=== PATIENT | female | born 1950 | race Caucasian/White ===

== ENCOUNTER → 2023-11-10 12:08 | Outpatient (REF) | payer OTHER, SELFPAY | LOC: HWRAD 12:08 | PROVIDERS: ATTENDING PHYSICIAN Student in an Organized Health Care Education/Training Program; FAMILY PHYSICIAN Family Medicine | DX: M54.41 Lumbago with sciatica, right side (principal) | CPT/HCPCS: 72110 ==

== ENCOUNTER 2023-12-07 16:10 | Emergency (ER) | payer OTHER, SELFPAY ==
[2023-12-07 16:23] VITALS: BP 111/69
--- NOTE | 2023-12-07 19:22 | ED.GENMED ---
History of Present Illness
General
Chief Complaint: Back Pain
Source: patient
Exam Limitations: none
Time Seen by Provider: 12/07/23 19:07
Nursing documentation reviewed up to this point in time: agreed with
History of Present Illness
History of Present Illness:
73-year-old female with no reported chronic medical issues presents to the emergency room for evaluation of constipation. Patient reports that she has not had a bowel movement in 11 days. She says that since early November she has been dealing with
low back pain�she says she woke up November 20 with back pain, saw her primary doctor and did some physical therapy and was feeling much better until about November 26 when she reinjured it while helping her elderly father. She says that pain was much
worse after this and she was having some numbness/paresthesias down her right lower extremity. She was started on gabapentin for pain control and she says generally low back pain has been improving. She is scheduled to see an orthopedist in 2
days. Meanwhile she has been struggling with significant constipation which prompted her to come to the emergency room.she was concerned that she could potentially have an obstruction. She says that she has taken stool softeners and MiraLAX
without improvement. She says she has tried enemas but has not had success. She says that she does not even feel the urge to defecate. Otherwise she feels generally well�she says she occasionally will get some lower abdominal pressure particular
when she eats but denies significant abdominal pain. She has not had any nausea or vomiting. She denies any urinary issues specifically denies incontinence. She denies any weakness in the lower extremities although she has had any
numbness/paresthesias right lower extremity as above. She denies any numbness in any groin or perineum/saddle anesthesia. She denies any fevers or chills. Denies other complaints.
Review of Systems
Review of Systems
All Other Systems: ROS reviewed and negative except as documented in HPI and ROS
Constitutional: Denies fever or chills
Respiratory: Denies trouble breathing
Cardiac: Denies chest pain
ABD/GI: Reports constipated; Denies abdominal pain, nausea or vomiting
: Denies dysuria, flank pain or incontinence
Musculoskeletal: Reports back pain; Denies neck pain
Neurological: Denies dizzy or headache
Phy Exam
Physical Exam
Physical Exam:
General: Awake, alert, oriented x3; no acute distress
Head: Normocephalic, atraumatic
Eyes: Conjunctiva normal
Throat: Airway intact, handling secretions
Neck: Trachea midline, supple without meningismus
Lungs: Clear to auscultation bilaterally, no wheezing, rales, rhonchi
Heart: Regular rate and rhythm, no murmurs, gallops, or rubs
Abd: Soft, non distended, minimally tender left lower quadrant
Rectal: No stool in the rectal vault or fecal impaction appreciated, good rectal tone, intact perineal sensation
Back: No midline tenderness in the thoracic or lumbar spine, no spinal step-offs, no reproducible paraspinal tenderness; negative straight leg raise test
Neuro: Cranial nerves grossly intact, speech fluid; motor and sensory function is intact and symmetric proximally and distally in the lower extremities, ambulatory in ED
Skin: no rash
Extremities: No edema in extremities, equal pulses in all extremities
Scores
Heart Failure Risk
Heart Failure Risk Score: Not Applicable
Heart Score for Chest Pain Patients
STEMI patient?: Not applicable
Withdrawal Assessment of Alcohol
Withdrawal Assessment Completed?: Not applicable
Course
Orders/Labs/Results
Orders:
Orders
12/07/23 19:22
CT Abd/pelvis W Iv Cont Urgent
Comment: patient also dealing with low back pain x3 weeks
Reason For Exam: lower abd pain, back pain, constipation (x11 days)
12/07/23 19:52
Complete Blood Count/With Diff Urgent
Comprehensive Metabolic Panel Urgent
Magnesium Urgent
12/07/23 21:31
Urinalysis Reflex To Culture Urgent
Date Specimen was Collected: 12/07/23
Time Specimen was Collected: 21:24
Abnormal Lab Results
12/07/23
19:52
WBC 3.6 L 10^3/uL
(4.8-10.8)
RBC 3.99 L 10^6/uL
(4.20-5.40)
Hgb 11.8 L g/dL
(12.0-16.0)
Hct 35.5 L %
(37.0-47.0)
RDW 14.8 H %
(11.5-14.5)
Absolute Lymphs (auto) 1.1 L 10^3/uL
(1.2-3.4)
Monocytes % 16.1 H %
(1.7-9.3)
AST 41 H U/L
(14-36)
Total Protein 6.2 L g/dl
(6.3-8.2)
12/07/23 19:52
12/07/23 19:52
Vital Signs
Initial and Last Documented VS:
Initial Vital Signs
Temp Pulse Resp BP Pulse Ox
36.7 C 80 16 111/69 97
12/07/23 16:23 12/07/23 16:23 12/07/23 16:23 12/07/23 16:23 12/07/23 16:23
Last Documented Vital Signs
Temp Pulse Resp BP Pulse Ox
36.7 C 72 16 139/91 98
12/07/23 16:23 12/07/23 22:08 12/07/23 22:08 12/07/23 22:08 12/07/23 22:08
MDM/Problems Addressed
Differential Diagnosis Includes:
Constipation, bowel obstruction, ileus
MDM/Problems Addressed:
73-year-old female presents to the emergency room for evaluation of constipation�reports no bowel movement x 11 days despite attempts with stool softener, MiraLAX, enema. Symptoms occurring in the setting of recent low back issues�she says these
issues are generally improving, only has mild paresthesias/numbness right lower extremity, no red flag symptoms or exam findings. Plan to check basic labs including a CBC and CMP. Will send for a CT abdomen pelvis. Will reassess after the above.
Labs reviewed: CBC shows marginal leukopenia, marginal anemia, no clinically significant abnormalities. CMP no clinically significant values. Urinalysis negative for infection. CT abdomen pelvis shows moderate stool burden consistent with
constipation. No signs of obstruction. Plan to treat with magnesium citrate for constipation. She is stable for discharge. She has been dealing with back pain for the past few weeks; she is already scheduled to see a specialist in 2 days�in my
judgment no indication for emergent MRI for her back pain with no motor weakness, no incontinence of bowel or bladder, no perineal sensory deficit, good rectal tone. Stable for discharge to follow-up with orthopedist in 2 days. Patient she is
comfortable this plan. We spoke about return precautions all questions answered.
*Radiology
Radiology exam reviewed: radiology read reviewed
*Pulse Oximetry
Patient hypoxic: no
*Critical Care Note
Total Time (30-74mins, 75-104mins- exclusive of procedures): Not Applicable
Data Reviewed
Source: patient
Further Testing Considered But Not Given:
Considered MRI
ED Attending Note
-
Portions of this chart may have been created with voice recognition software.� Occasional wrong word or��sound alike� substitutions may have occurred due to the inherent limitations of voice recognition software.
Discharge Plan
Departure
Patient Disposition: Home (Routine Discharge)
Date of Disposition: 12/07/23
Time of Disposition: 22:31
Patient with high blood pressure during this ER visit?: No
Discharge Problem:
Constipation, Low back pain
Instructions: Constipation, Adult ED
Referrals:
Deonte Jordan MD [Family Provider] - Call in 1-3 days for appt
Activity Restrictions/Additional Instructions:
You should take magnesium citrate as directed at home. This should stimulate bowel movement. Thereafter you should take MiraLAX twice daily and Colace once daily for the next week to encourage bowel movement. Regarding your back pain�you should
follow-up with the orthopedist on Thursday as scheduled. If you feel that the pain is worsening or if you are starting have weakness in your legs, incontinence of bowel or bladder, numbness in your perineum or any other symptoms that are
concerning to you should return to the emergency room immediately.
Thank you for visiting the Emergency Department at [facility].
1. Please schedule a follow up appointment as directed. Call first thing tomorrow morning to make an appointment.
2. If indicated, please take your medications as instructed and indicated on discharge paperwork.
3. If any of your symptoms do not improve, or persist, or become more severe within 6-12 hours, please return to the emergency department for further care.
4. Please return to the emergency department if you develop a headache, neck pain/stiffness, fever greater than 100.4F, chest pain, shortness of breath, persistent nausea, vomiting, slurred speech, difficulty walking, numbness/tingling, weakness,
signs of infection or any other symptoms that are worrisome to you.
Please call [phone] if you have any questions.
Interventions
Interventions:
*Risk Screen - Suicide Last Done: 12/07/23 18:49
*General Assessment Last Done: 12/07/23 19:54
*Neglect/Abuse Screening Last Done: 12/07/23 18:49
ED-Musculoskeletal Assessment Last Done: 12/07/23 19:54
Discharge Date and Time
Print Language: [id number]
[2023-12-07 19:54] VITALS: BP 141/92; BMI 20.8
[2023-12-07 20:06] LABS: % Basophils 0.8 % (0-2); % Eosinophils 1.1 % (0-6); % Immature Granulocytes 0.3 % (0-0.5); % Lymphocytes 31.7 % (20.5-51.1); % Monocytes 16.1 % (1.7-9.3); Absolute Lymphocytes 1.1 10^3/uL (1.2-3.4); Absolute Monocytes 0.6 10^3/uL (0.1-0.6); Absolute Neutrophils 1.8 10^3/uL (1.4-6.5); Hematocrit 35.5 % (37.0-47.0); Hemoglobin 11.8 g/dL (12.0-16.0); Mean Corp Hgb Conc. 33.2 g/dL (33.0-37.0); Mean Corpuscular Hgb 29.6 pg (27.0-31.0); Mean Platelet Volume 10.1 fL (7.4-10.4); Nucleated Red Blood Cells % 0 %; Platelet Count 189 10^3/uL (130-400); Red Blood Cell Count 3.99 10^6/uL (4.20-5.40); Red Cell Dist. Width 14.8 % (11.5-14.5); White Blood Cell Count 3.6 10^3/uL (4.8-10.8)
[2023-12-07 20:29] LABS: ALT (SGPT) 23 U/L (0-35); AST (SGOT) 41 U/L (14-36); Alkaline Phosphatase 63 U/L (38-126); Blood Urea Nitrogen 14 mg/dl (7-17); Calcium 9.6 mg/dl (8.4-10.2); Carbon Dioxide 30 mmol/L (22-30); Chloride 101 mmol/L (98-107); Estimated Creatinine Clearance 67 ml/min; Glucose 85 mg/dl (70-99); Potassium 4.1 mmol/L (3.5-5.1); Sodium 136 mmol/L (135-145); Total Bilirubin 0.3 mg/dl (0.2-1.3); Total Protein 6.2 g/dl (6.3-8.2); eGFR > 60.00
[2023-12-07 21:41] LABS: Urine Albumin Negative (Neg - Trace); Urine Bilirubin Negative (Negative); Urine Character Clear (Clear); Urine Color Yellow; Urine Glucose Negative (Negative); Urine Ketone Negative (Negative); Urine Leukocyte Negative (Negative); Urine Nitrite Negative (Negative); Urine Occult Blood Negative (Negative); Urine Urobilinogen Negative (Neg - 1+)
[2023-12-07 22:08] VITALS: BP 139/91
[2023-12-07] MEDS: CITROMA 300 ML PO (22:41)
== END 2023-12-07 22:49 | disposition home or self-care (01) ==
LOC: EMR 16:10
PROVIDERS: EMERGENCY PHYSICIAN Emergency Medicine; FAMILY PHYSICIAN Family Medicine
DX: K59.00 Constipation, unspecified (principal); M54.50 Low back pain, unspecified; R20.2 Paresthesia of skin; R20.0 Anesthesia of skin; R10.30 Lower abdominal pain, unspecified
CPT/HCPCS: 99284; 74177; 80053; 81003; 83735; 85025; Q9967

== ENCOUNTER → 2023-12-15 12:40 | Outpatient (REF) | payer OTHER, SELFPAY | LOC: PAVMRI 12:40 | PROVIDERS: ATTENDING PHYSICIAN Orthopaedic Surgery; FAMILY PHYSICIAN Family Medicine | DX: M54.50 Low back pain, unspecified (principal) | CPT/HCPCS: 72148 ==

== ENCOUNTER → 2024-07-04 12:59 | Outpatient (REF) | payer OTHER, SELFPAY | LOC: RAD 12:59 | PROVIDERS: ATTENDING PHYSICIAN Surgery Vascular Surgery; FAMILY PHYSICIAN Family Medicine | DX: I73.9 Peripheral vascular disease, unspecified (principal) | CPT/HCPCS: 93922; 93925 ==

== ENCOUNTER → 2025-01-11 13:36 | Outpatient (REF) | payer SELFPAY | LOC: HWRAD 13:36 | PROVIDERS: ATTENDING PHYSICIAN Family Medicine | DX: E78.2 Mixed hyperlipidemia (principal); I73.9 Peripheral vascular disease, unspecified | CPT/HCPCS: 75571 ==